=== PATIENT | male | born 1975 ===

== ENCOUNTER → 2025-01-01 16:07 | Outpatient (CLI) | payer OTHER, SELFPAY ==
[2025-01-01 17:00] LABS: Influenza A - CEPHEID Flu A NEGATIVE (NEGATIVE); Influenza B - CEPHEID Flu B NEGATIVE (NEGATIVE); Respiratory Syncytial Virus Negative (Negative)
[2025-01-01 17:02] LABS: COVID-19 CEPHEID 4-PLEX PCR Negative (Negative)
== END ==
PROVIDERS: Visit Provider Physician Assistant Surgical
DX: R52 Pain, unspecified (principal); R09.81 Nasal congestion
CPT/HCPCS: 87635; 87400 ×2; 87420; 0241U

== ENCOUNTER → 2025-05-19 13:04 | Outpatient (CLI) | payer OTHER, SELFPAY | LOC: LAB 13:06 | PROVIDERS: Visit Provider Chiropractor | DX: J06.9 Acute upper respiratory infection, unspecified (principal) | CPT/HCPCS: 87252 ==